=== PATIENT | male | born 1960 | race African-American/Black ===

== ENCOUNTER 2017-07-19 12:05 | Emergency (ER) | payer SELFPAY ==
[~2017-07-19] VITALS: Ht 177.8 cm; Wt 82.0 kg
[2017-07-19 12:48] VITALS: BP 120/64
== END 2017-07-19 15:57 | disposition left against medical advice (07) ==
LOC: ER 14:19
DX: R51 Headache (principal)
CPT/HCPCS: 70110; 99284

== ENCOUNTER 2017-11-10 11:16 | Emergency (ER) | payer SELFPAY ==
[~2017-11-10] VITALS: Ht 177.8 cm; Wt 89.0 kg
[2017-11-10] MEDS ORDERED: OXYCODONE HCL/ACETAMINOPHEN 5/325MG TABLET PO ONE (13:00)
[2017-11-10 13:50] VITALS: BP 132/84
== END 2017-11-10 14:21 | disposition home or self-care (01) ==
LOC: ER 11:57
DX: G89.29 Other chronic pain (principal); M54.2 Cervicalgia; M54.5 Low back pain; V89.2XXA Person injured in unspecified motor-vehicle accident, traffic, initial encounter; Y93.89 Activity, other specified; Y92.89 Other specified places as the place of occurrence of the external cause; Y99.8 Other external cause status
CPT/HCPCS: 71101; 72100; 72125; 73521; 99285; Z7610